=== PATIENT | female | born 1965 | race Caucasian/White ===

== ENCOUNTER 2019-09-05 21:07 | Inpatient (IN) | payer SELFPAY ==
[~2019-09-05] VITALS: Ht 162.6 cm; Wt 58.2 kg
[2019-09-05 23:15] VITALS: BP 139/83
[2019-09-06] VITALS (11 sets, daily range): BP systolic 92–156; BP diastolic 51–85
--- NOTE | 2019-09-06 00:30 | NUR ---
Patient, PIETER SMITH, admitted to room 434, at 2322, with fx rt hip, hutchins and saline lock placed per [place]'s ED nurse, son, obtained list of 3 home meds per daughter (to whom pt lives with), but she did not know doses. booklet given, npo at midnight,
[2019-09-06] MEDS: fentaNYL PF VIAL 100 MCG/2 ML VIAL IVP PRN ×3 (00:41→08:32)
[2019-09-06] MEDS ORDERED: gabapentin (04:15)
[2019-09-06] MEDS ORDERED: synthroid (04:15)
[2019-09-06] MEDS ORDERED: cymbalta (04:15)
[2019-09-06 05:05] LABS: BASO % 1 % (0-3); EOS # 0.1 x10^3/uL (0.0-0.7); EOS % 2 % (0-3); HEMATOCRIT 35.5 % (36.0-47.0); LYMPH # 0.7 x10^3/uL (1.0-4.8); LYMPH % 19 % (24-48); MEAN CORPUSCULAR HEMOGLOBIN 32 pg (25-35); MEAN CORPUSCULAR HGB CONC 34 g/dL (31-37); MEAN CORPUSCULAR VOLUME 94 fL (79-100); MONO # 0.4 x10^3/uL (0.0-1.1); MONO % 10 % (0-9); NEUT # 2.6 x10^3/uL (1.8-7.7); NEUT % 68 % (31-73); PLATELET COUNT 159 x10^3/uL (140-400); RED BLOOD COUNT 3.79 x10^6/uL (3.50-5.40); RED CELL DISTRIBUTION WIDTH 14.2 % (11.5-14.5); WHITE BLOOD COUNT 3.8 x10^3/uL (4.0-11.0)
[2019-09-06 05:17] LABS: PROTHROMBIN TIME PATIENT 12.5 SEC (11.7-14.0)
[2019-09-06 06:07] LABS: ALBUMIN 3.4 g/dL (3.4-5.0); ALBUMIN/GLOBULIN RATIO 1.1 (1.0-1.7); CREATININE 0.9 mg/dL (0.6-1.0); GFR 65.2; TOTAL BILIRUBIN 0.6 mg/dL (0.2-1.0); TOTAL PROTEIN 6.5 g/dL (6.4-8.2)
[2019-09-06 06:31] LABS: POTASSIUM 4.1 mmol/L (3.5-5.1)
[2019-09-06] MEDS ORDERED: IV RINGERS,LACTATED 1000ML 1,000 ML IV SCH (09:26)
[2019-09-06] MEDS ORDERED: LIDOCAINE 1% PF 2 ML VIAL. ID PRN (09:30)
[2019-09-06] MEDS ORDERED: HYDROmorphone 2 MG/ML VIAL IV PRN (09:30)
[2019-09-06] MEDS ORDERED: MORPHINE SULFATE 2 MG/ML VIAL. IV PRN ×2 (09:30→17:45)
[2019-09-06] MEDS ORDERED: PROCHLORPERAZINE 10 MG/2 ML VIAL. IV PRN (09:30)
[2019-09-06] MEDS ORDERED: fentaNYL PF VIAL 100 MCG/2 ML VIAL IV PRN ×3 (09:30→17:45)
[2019-09-06] MEDS ORDERED: ONDANSETRON PF 4 MG/2 ML VIAL. IV PRN ×2 (09:30→17:45)
--- NOTE | 2019-09-06 10:05 | HP ---
ADMIT DATE: HISTORY OF PRESENT ILLNESS: The patient is a 53-year-old female patient who was brought to the Emergency Room of [facility] one hour post-fall after attempting to step over a baby gate and landed on her right side. The patient complained of severe hip and right shoulder pain. She stated that she did not hit her head or lose consciousness. The pain is achy, 5/10 in severity, worsens with movement. She took three 500 mg Tylenol after the fall, but it has not helped with the pain. She denied any neck, back or other joint pain. She is hard of hearing, is able to read lips and able to make her needs known. She was extensively evaluated in the Emergency Room. Her lab works were unremarkable; however, her x-ray of the hip and pelvis showed that the patient has mildly displaced right femoral neck fracture. X-ray of the shoulder was apparently unremarkable and chest x-ray was showed no acute finding and was transferred to [facility] for definitive surgical intervention by the orthopedic surgeon. PAST MEDICAL HISTORY: Significant for multiple myeloma. She has also history of amyloidosis, depression, hyperthyroidism, bilateral breast cancer. PAST SURGICAL HISTORY: Significant for total abdominal hysterectomy, bilateral salpingo-oophorectomy, thyroidectomy and bilateral mastectomy. She underwent also stem cell transplant for multiple myeloma. She has peripheral neuropathy. ALLERGIES: SHE IS ALLERGIC TO IODINE. MEDICATIONS: She is currently on following medications: She is on Cymbalta, Levoxyl and gabapentin. FAMILY HISTORY: She has 4 sisters older and one brother younger, are all healthy. Her father at age of 77 with heart disease and mother at age 77 because of lung cancer. SOCIAL HISTORY: She is , has 2 sons and 1 daughter. She never smoked, quit drinking alcohol about 3 years ago. She continued to use marijuana. She currently lives with her daughter. PHYSICAL EXAMINATION: GENERAL: On examining her; she looked well and was clearly in no apparent respiratory distress, pale but no jaundice, cyanosis or thyromegaly. No jugular venous distension. No lower limb edema. VITAL SIGNS: Her heart rate was 82, blood pressure was 142/80, temperature was 98, respiratory rate was 16 and oxygen saturation was 97%. HEAD, EYES, EARS, NOSE AND THROAT: Showed normocephalic, atraumatic. NECK: Supple. HEART: Showed normal first and second heart sounds. No gallop or murmur. CHEST: Clear to auscultation. No crepitation or rhonchi. ABDOMEN: Distended, soft, nontender. NEUROLOGIC: She is awake, alert, very hard of hearing but she is apparently able to read lips. All other cranial nerves are intact. EXTREMITIES: She moves all extremities without difficulty. She is having pain moving her right lower extremity. LABORATORY DATA: Her lab work showed serum sodium 140, potassium 3.9, chloride 104, bicarbonate 26, anion gap of 10, BUN 25 and creatinine 1. Estimated GFR was 57 mL per minute. Her glucose was 108, calcium was 9.6 and magnesium 2. Total bilirubin, AST and ALT are normal. Alkaline phosphatase slightly elevated. Her total protein was 6.7 and albumin 3.8. Her white cell count was 8,000, hemoglobin 12.5, hematocrit 37, MCV 95 and platelet count of 186,000. Her prothrombin time, INR and aPTT are all normal. Urinalysis showed the urine was yellow, clear with a pH of 5.5, specific gravity of 1.025 and small amount of protein. The urine otherwise was essentially unremarkable. Her chest x-ray showed no acute cardiopulmonary abnormality. The shoulder x-ray showed that there is no displaced fracture with normal bony alignment, no acute osseous/articular abnormality, minimal hypertrophic changes of the acromioclavicular joint, right-sided Port-A-Cath in place. The x-ray of the hip and pelvis showed that complete transverse fracture of the subcapital femoral neck. There is mild bilateral displacement at the fracture site. Pelvic ring is intact. No additional fractures are seen. She has mild degenerative changes in bilateral hip joints. ASSESSMENT AND PLAN: The patient was transferred to [facility]. Continued on IV fluid, IV pain medication and we have consulted the orthopedic surgeon for further evaluation and treatment. AARON OZUNA MD DR: FABIANA/belinda JOB#: [id number] / [id number]
--- NOTE | 2019-09-06 11:49 | NUR ---
SW following for discharge planning. Discussed with RN, pt is from home with daughter. [facility] to meet with pt to determine if pt meets eligibility for medicaid. Pt to have surgery. SW will continue to follow for discharge planning needs.
--- NOTE | 2019-09-06 12:29 | PN ---
DATE: 09/06/2019 SUBJECTIVE: The patient was admitted yesterday as a transfer from [facility] Emergency Room where she was brought an hour after she fell at home trying to go over a baby gate and landed on her right hip and right shoulder. Her x-ray of the pelvis showed that she has subcapital right femoral neck fracture and was transferred for definitive surgical treatment for her right hip fracture. She was kept n.p.o. from midnight and we did consult the orthopedic surgeon. PHYSICAL EXAMINATION: GENERAL: When I saw her this morning, she looked well and was clearly in no apparent respiratory distress, slightly pale, but no jaundice, cyanosis or thyromegaly. No jugular venous distention. No limb edema. VITAL SIGNS: Her heart rate was 73, blood pressure 156/78, temperature was 97.8, respiratory rate was 18 and oxygen saturation was 99%. The rest of clinical exam is stable. LABORATORY DATA: Her lab work showed that her white cell count was 3800, hemoglobin 12, hematocrit 36, MCV 94, and platelet count 259,000. Her chemistry showed that her serum sodium 141, potassium 4.1, chloride 105, bicarbonate 25, anion gap of 11, BUN 19, creatinine 0.9, estimated GFR was 65 mL per minute, her glucose 112, calcium was 9. Total bilirubin is normal; however, AST, ALT, alkaline phosphatase has risen. Her total protein was 6.5, albumin was 3.4. ASSESSMENT: In summary, this is a 53-year-old who fell, landing on her right hip, sustaining right subcapital femoral neck fracture, here for definitive surgical treatment. She has multiple other medical problems including breast cancer status post bilateral mastectomy, has multiple myeloma status post stem cell transplant. She has also hypothyroidism, status post thyroidectomy and peripheral neuropathy. AARON OZUNA MD DR: FABIANA/belinda JOB#: [id number] / [id number]
[2019-09-06] MEDS ORDERED: ONDANSETRON PF 4 MG/2 ML VIAL. ONE (15:30)
[2019-09-06] MEDS ORDERED: LIDOCAINE 2% PF 5 ML VIAL. ONE (15:30)
[2019-09-06] MEDS ORDERED: MIDAZOLAM HCL/PF 2 MG/2 ML VIAL. ONE (15:30)
[2019-09-06] MEDS ORDERED: fentaNYL PF VIAL 100 MCG/2 ML VIAL ONE (15:30)
[2019-09-06] MEDS ORDERED: DEXAMETHASONE SOD PHOS 4 MG/ML VIAL ONE (15:30)
[2019-09-06] MEDS ORDERED: PROPOFOL 20 ML IV ONE (15:30)
[2019-09-06] MEDS ORDERED: MORPHINE SULFATE 5 MG, KETOROLAC 30MG VIAL 30 MG, ROPIVacaine 0.5% PF 60 ML, EPINEPHrin... INT ART ONE ×5 (16:00)
[2019-09-06] MEDS ORDERED: ROCURONIUM 50 MG/5 ML VIAL. ONE (16:03)
[2019-09-06] MEDS ORDERED: ceFAZolin SODIUM 1 GM VIAL ONE (16:47)
[2019-09-06] MEDS ORDERED: GLYCOPYRROLATE 1 MG/5 ML VIAL. ONE (17:03)
[2019-09-06] MEDS ORDERED: NEOSTIGMINE METHYLSULFATE 5 MG/5 ML SYRINGE. ONE (17:04)
[2019-09-06] MEDS ORDERED: NITROGLYCERIN SUBLINGUAL 0.4 MG BOTTLE OF 25. SL ONE (17:17)
[2019-09-06] MEDS ORDERED: SEVOFLURANE 61 TO 120 MINUTES. IH ONE (17:29)
[2019-09-06] MEDS ORDERED: HYDROcodone/APAP 7.5/325MG 1 TAB TABLET PO PRN (17:45)
[2019-09-06] MEDS ORDERED: oxyCODONE IR 5 MG TABLET PO PRN (17:45)
[2019-09-06] MEDS ORDERED: MORPHINE SULFATE 4 MG/ML VIAL. IV PRN (17:45)
[2019-09-06] MEDS ORDERED: DEXTROSE 50% 25 GM / 50ML DISP.SYRIN. IV PRN (17:45)
[2019-09-06] MEDS ORDERED: POLYETHYLENE GLYCOL 3350 17 GM PACKET. PO PRN (17:45)
--- NOTE | 2019-09-06 17:51 | PDOC4 ---
Operative Note Operative Note Date of surgery: 09/06/2019 Preoperative diagnosis: Displaced right femoral neck fracture Postoperative diagnosis: Same Operative procedure: Right hip hemiarthroplasty Surgeon: Hung Anesthesia: Gen. Estimated blood loss: 850 mL Complications: None Specimens: Femoral head to pathology Operative indications: Please see my orthopedic consultation for detailed operative indications Operative text: Patient was identified procedure verified patient placed in the supine position on the operative table. After adequate amounts of general anesthesia were administered she was placed decubitus and the right side up position with the Stulberg hip positioner all bony prominences were well-padded and the right hip was prepped and draped in standard sterile fashion. After timeout was performed patient procedure identified and verified curvilinear incision was made centered over the greater trochanter iliotibial band and gluteal fascia were split in line with their fibers and Charnley retractor was placed. Hip capsule was split in a T fashion external rotators were divided from their insertion and calcar cut was made femoral head was removed and sized at a size 42 acetabular cartilage was noted to be intact femoral canal was reamed and broached and noted to have significant bleeding from within the canal even prior to broaching and a size 11 broach was trial fit with a 22 mm head 42 mm outer diameter bipolar trial component trial components removed thorough irrigation carried out normal saline solution and a size 11 standard offset Sy[employer] stem was impacted in place with proper version and a size 22 mm inner diameter 42 mm outer diameter bipolar construct was assembled on the back table tapped in place to engage the Ordoñez taper and reduced offset and leg length were re-produced with excellent stability thorough irrigation again carried out normal saline solution hip capsule was repaired with #5 Ethibond suture external rotators were repaired transosseously as well pain mixture was injected throughout the joint capsule fascia was closed with #5 Ethibond suture and #1 P DS running suture strata fix subcutaneous closure with buried Vicryl skin closure with christian a david dressing with Acticoat was placed patient was returned to recovery room in stable condition. She was noted to have some mild EKG abnormalities and postoperatively recommended for a monitored bed with cardiology evaluation and her primary care doctor was notified as well JOSE DURANT MD Sep 06, 2019 17:51
--- NOTE | 2019-09-06 18:19 | EKG ---
[facility] [address] [place] [address] Test Date: 2019-09-06 Test Time: 18:13:45 Pat Name: PIETER SMITH Department: Room: 434 1 Gender: F Statistician Applied: SHILOH : 1965 Requested By: VIRAL NICHOLSON Order Number: [id number] Reading MD: Measurements Intervals [place] Rate: 94 P: TN: QRS: -9 QRSD: 126 T: 94 QT: 392 QTc: 496 Interpretive Statements IRREGULAR RHYTHM, NO P-WAVE FOUND LEFTWARD AXIS NON SPECIFIC INTRAVENTRICULAR BLOCK QRS(T) CONTOUR ABNORMALITY CONSISTENT WITH ANTEROSEPTAL INFARCT PROBABLY OLD ABNORMAL ECG RI6.01 No previous ECG available for comparison
[2019-09-06 18:27] LABS: HEMOGLOBIN 10.1 g/dL (12.0-15.5); RED BLOOD COUNT 3.18 x10^6/uL (3.50-5.40); WHITE BLOOD COUNT 9.2 x10^3/uL (4.0-11.0)
[2019-09-06] MEDS ORDERED: WARFARIN 5 MG TABLET. PO ONE (18:30)
[2019-09-06 18:40] LABS: CALCIUM 8.6 mg/dL (8.5-10.1); CREATININE 0.9 mg/dL (0.6-1.0); GFR 65.2; POTASSIUM 3.9 mmol/L (3.5-5.1)
--- NOTE | 2019-09-06 20:36 | CONS ---
DATE OF CONSULTATION: 09/06/2019 REQUESTING PHYSICIAN: Dr. Giles. REASON FOR CONSULTATION: Right hip fracture. HISTORY OF PRESENT ILLNESS: The patient is a 53-year-old female who presented to [facility] Emergency Department after tripping over a baby gate, landing on her right hip, had the severe onset of right hip pain, inability to bear weight. Denies any head injury or loss of consciousness. She did hit her shoulder, but that is not currently tender. She has severe hip pain with any movement or attempts at weightbearing and was transferred to [facility] for further evaluation and treatment due to her hip fracture. PAST MEDICAL HISTORY: Significant for severe hard of hearing, multiple myeloma, breast cancer, depression, hyperthyroidism and amyloidosis. Also, significant for peripheral neuropathy. PAST SURGICAL HISTORY: Hysterectomy, oophorectomy, thyroidectomy, bilateral mastectomy and stem cell transplant for multiple myeloma. ALLERGIES: INCLUDE IODINE. MEDICATIONS: Cymbalta, Levoxyl and gabapentin. FAMILY HISTORY: Has several siblings that are healthy. Father of heart disease in his late 70s and mother of lung cancer. SOCIAL HISTORY: She is , has children. Denies current cigarette smoking and quit drinking any alcohol several years ago. She does occasionally use marijuana and lives with her daughter. REVIEW OF SYSTEMS: Significant for the severe right hip pain and some shoulder achiness after contusion on the fall. Denies any head injury. No chest pain, shortness of breath. She does have baseline peripheral neuropathy. Otherwise, no weakness, numbness, tingling focally. PHYSICAL EXAMINATION: GENERAL: A pleasant, cooperative 53-year-old female, very hard of hearing, but certainly can communicate well with her hearing aid in. HEENT: Atraumatic, normocephalic. MUSCULOSKELETAL: She has good range of motion and stability of bilateral shoulders, elbows and wrists. EXTREMITIES: Examination of the right hip reveals some mild shortening, slight rotation, tender with any motion. Normal examination of the contralateral left hip, bilateral knees and ankles with overall, aside from her baseline stocking distribution, neuropathy; intact motor function, distal pulses, sensation in both upper and lower extremities throughout. IMAGING: X-rays show a displaced femoral neck fracture on the right. TREATMENT PLAN: I went over with her the concern for interruption of her blood supply due to the fracture and the recommended treatment of a right hip hemiarthroplasty, particularly because even with fixation, I think her healing rate would be very low due to the compromise of the blood supply to the femoral head. I talked about the possibility of wear down the line that may result in conversion to a total hip, perhaps with many years in the future. However, doing a total hip at this point does have an increased risk of instability. We also talked about the possibility of infection, nerve or blood vessel damage, continued pain, stiffness, medical or other anesthetic complications among others. She agrees to proceed with surgical evaluation and treatment, which will occur today as she was already evaluated and cleared for surgical intervention by Dr. Giles. JOSE DURANT MD DR: KASANDRA/belinda JOB#: [id number] / [id number]
[2019-09-06] MEDS ORDERED: MAGNESIUM SULFATE 1GM 100 ML IV ONE (23:00)
[2019-09-06] MEDS: ceFAZolin SODIUM IV Push 1 GM VIAL. IVP SCH (23:10)
[2019-09-06] MEDS: HYDROcodone/APAP 7.5/325MG 1 TAB TABLET PO PRN (23:20)
[2019-09-07 03:05] VITALS: BP 102/58
[2019-09-07] MEDS: ceFAZolin SODIUM IV Push 1 GM VIAL. IVP SCH ×2 (05:40→10:31)
[2019-09-07] MEDS: HYDROcodone/APAP 7.5/325MG 1 TAB TABLET PO PRN ×3 (05:47→22:46)
[2019-09-07 05:48] LABS: BASO % 1 % (0-3); EOS % 0 % (0-3); HEMATOCRIT 25.6 % (36.0-47.0); HEMOGLOBIN 8.8 g/dL (12.0-15.5); LYMPH # 0.6 x10^3/uL (1.0-4.8); LYMPH % 9 % (24-48); MEAN CORPUSCULAR HEMOGLOBIN 32 pg (25-35); MEAN CORPUSCULAR HGB CONC 34 g/dL (31-37); MEAN CORPUSCULAR VOLUME 94 fL (79-100); MONO # 0.6 x10^3/uL (0.0-1.1); MONO % 9 % (0-9); NEUT # 5.5 x10^3/uL (1.8-7.7); NEUT % 81 % (31-73); PLATELET COUNT 140 x10^3/uL (140-400); RED BLOOD COUNT 2.74 x10^6/uL (3.50-5.40); RED CELL DISTRIBUTION WIDTH 14.2 % (11.5-14.5); WHITE BLOOD COUNT 6.7 x10^3/uL (4.0-11.0)
[2019-09-07] MEDS ORDERED: MAGNESIUM HYDROXIDE 2,400 MG/30 ML ORAL.SUSP. PO PRN (06:00)
[2019-09-07 06:06] LABS: CALCIUM 8.7 mg/dL (8.5-10.1); GFR 57.8; MAGNESIUM 2.1 mg/dL (1.8-2.4); POTASSIUM 4.5 mmol/L (3.5-5.1)
[2019-09-07 07:25] VITALS: BP 108/56
[2019-09-07] MEDS ORDERED: GABA-585 PO (07:31)
[2019-09-07] MEDS ORDERED: LEVO125T5 PO (07:31)
[2019-09-07] MEDS ORDERED: DULO60CA6 PO (09:23)
--- NOTE | 2019-09-07 09:40 | PN ---
DATE: 09/07/2019 SUBJECTIVE: The patient underwent right hip hemiarthroplasty successfully. Apparently during the operation, she developed arrhythmias and ST segment depression according to the dairy equipment specialist and she also lost about 850 mL of blood and therefore, she was admitted to [facility] for monitoring. Her first troponin was only ____ 0.017. Her magnesium was apparently low at 1.5; however, the potassium was within normal range and we did consult the cardiology for evaluation and treatment. When I saw her this morning, she was sitting slightly propped up in bed, eating her breakfast comfortably, in no apparent distress. She is very hard of hearing. However, she did not offer any complaint. The nursing staff stated that she has an uneventful night. PHYSICAL EXAMINATION: GENERAL: When I examined her, she looked pale, no jaundice, cyanosis or thyromegaly. No jugular venous distension. No lower limb edema. VITAL SIGNS: Her heart rate was 82, blood pressure was 108/56, temperature was 98, respiratory rate was 20, and oxygen saturation was 94%. The rest of examination is stable. LABORATORY DATA: Showed serum sodium 141, potassium 4.5, chloride 106, bicarbonate 26, anion gap of 9, BUN 20, creatinine 1, estimated GFR was 58 mL per minute. Her glucose 116, calcium was 8.7, magnesium was 2.1. ASSESSMENT: 1. The patient was admitted after attempting to step over a baby gate and landed on her right side, sustaining right femoral neck fracture for which she underwent a right hip hemiarthroplasty successfully. 2. Blood loss anemia with hemoglobin and hematocrit dropped down from 12 and 35.5 to 8.8 and 25.6. She has multiple other medical problems including multiple myeloma, status post stem cell transplant. 3. Breast cancer, status post bilateral mastectomy. She has amyloidosis, depression, hyperthyroidism, status post thyroidectomy. PLAN: My plan is to continue with current plan of management. I will check another cardiac enzyme and monitor her H and H closely and await evaluation by the dolphin researcher. AARON OZUNA MD DR: FABIANA/belinda JOB#: [id number] / [id number]
[2019-09-07] MEDS ORDERED: LEVOTHYROXINE 125 MCG TABLET PO SCH (10:00)
--- NOTE | 2019-09-07 10:00 | CARD ---
MR#: [id number] Date of Study: 09/07/2019 Ordering Physician: GUNNER SANDHU, Referring Physician: GUNNER SANDHU, Tech: Juli Connelly RDCS APPROVED REPORT EXAM: Two-dimensional and M-mode echocardiogram with Doppler and color Doppler. Other Information Quality : Technically LimitedHR: 87bpm Rhythm : Other INDICATION Arrhythmia 2D DIMENSIONS RVDd3.5 (2.9-3.5cm)Left Atrium(2D)4.3 (1.6-4.0cm) IVSd1.4 (0.7-1.1cm)Aortic Root(2D)2.8 (2.0-3.7cm) LVDd3.2 (3.9-5.9cm)LVOT Diameter1.9 (1.8-2.4cm) PWd1.4 (0.7-1.1cm)LVDs2.0 (2.5-4.0cm) FS (%) 35.8 %SV27.0 ml LVEF(%)65.0 (>50%) M-Mode DIMENSIONS Left Atrium(MM)4.17 (2.5-4.0cm)Aortic Root2.34 (2.2-3.7cm) Aortic Valve AoV Peak Angus.188.8cm/sAoV VTI27.9cm AO Peak GR.14.3mmHgLVOT VTI 12.44cm AO Mean GR.7mmHgAVA (VTI)1.30cm2 Mitral Valve MV E Pfgzbgff934.1cm/sMV E Peak Gr.87mmHg MV DECEL PENL469iyVT A Dfitxlrz614.1cm/s MV E Mean Gr.3mmHgE/A Ratio1.0 MV A Uqyrjleb18nt Tricuspid Valve TR P. Kdzruhuk915bz/sRAP WYSWBIIY1foVv TR Peak Gr.60nrSyHFHE93euOa LEFT VENTRICLE The left ventricle cavity is small. There is moderate concentric left ventricular hypertrophy. The le ft ventricular systolic function is normal. The Ejection Fraction is 65-70%. There is normal LV segme ntal wall motion. Transmitral Doppler flow pattern is Grade I-abnormal relaxation pattern. RIGHT VENTRICLE The right ventricle is normal size. The right ventricle is mildly hypertrophied. The right ventricula r systolic function is normal. ATRIA The left atrium is mildly dilated. The right atrium size is normal. The interatrial septum is intact with no evidence for an atrial septal defect or patent foramen ovale as noted on 2-D or Doppler imagi ng. AORTIC VALVE The aortic valve is normal in structure and function. The aortic valve is trileaflet. Doppler and Col or Flow revealed no significant aortic regurgitation. There is no significant aortic valvular stenosi s. MITRAL VALVE The mitral valve is thickened but opens well. There is no evidence of mitral valve prolapse. There is no mitral valve stenosis. Doppler and Color-flow revealed mild mitral regurgitation. TRICUSPID VALVE The tricuspid valve is normal in structure and function. Doppler and Color Flow revealed mild tricusp id regurgitation. There is moderate pulmonary hypertension. The PA pressure was estimated at 48 mmHg. There is no tricuspid valve prolapse or vegetation. There is no tricuspid valve stenosis. PULMONIC VALVE The pulmonic valve is not well visualized. GREAT VESSELS The aortic root is normal in size. The ascending aorta is normal in size. The IVC is normal in size a nd collapses >50% with inspiration. PERICARDIAL EFFUSION There is no evidence of significant pericardial effusion. Critical Notification Critical Value: No <Conclusion> The left ventricular systolic function is normal. The Ejection Fraction is 65-70%. There is normal LV segmental wall motion. Mild mitral regurgitation. Mild tricuspid regurgitation. The PA pressure was estimated at 48 mmHg. There is no evidence of significant pericardial effusion. Signed by : John Jordan, Electronically Approved : 09/07/2019 09:59:58
[2019-09-07] MEDS: SENNOSIDES/DOCUSATE 8.6/50MG TABLET. PO SCH (10:31)
--- NOTE | 2019-09-07 10:56 | PDOC2 ---
CARDIAC CONSULT DATE OF CONSULT Date of Consult DATE: 09/07/19 TIME: 10:23 REASON FOR CONSULT Reason for Consult: Intraoperative ST changes REFERRING PHYSICIAN Referring Physician: Hannah HISTORY OF PRESENT ILLNESS HISTORY OF PRESENT ILLNESS This is a 53 yo female admitted for complains of right hip pain with fall. Initially she was at [facility] and further imaging showed right femoral fracture ending up with right hip hemiarthroplasty. She does not have hx of AFIB but apparently per staff she lost about >800 ml of blood and intraop was noted with ST depression. I was not able to retrieve her EKG readings at that time but her EKG showed that she was in AFIB which is new for her. She did convert to SR. Prior to her fall she has not had any cardiac symptoms and actually tolerated the fracture repair. 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 Also she had stem cell transplant due to malignant melanoma. She had a stress test 2 yrs ago prior to her thyroidectomy. 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/26/2018; neurogenic OH) Heme/Onc: Cancer (breast) Psych: Depression Musculoskeletal: Osteoarthritis, Other (ataxia?) ENT: Other (YAVAPAI-APACHE) Endocrine: Hypothyroidism Dermatology: Melanoma PAST SURGICAL HISTORY Past Surgical History: Tubal Ligation, Hysterectomy, Other (s/p stem cell transplant; thyroidectomy; breast reconstruction) FAMILY HISTORY Family History: Hypertension SOCIAL HISTORY Smoke: No ALCOHOL: none Drugs: None Lives: with Family CURRENT MEDICATIONS CURRENT MEDICATIONS Current Medications Medications (Trade) Dose Ordered Sig/Elizabeth Route PRN Reason Start Time Stop Time Status Last Admin Dose Admin Morphine Sulfate 5 mg/Ketorolac Tromethamine 30 mg/Ropivacaine 60 ml/Epinephrine HCl 0.5 mg/Sodium Chloride 100 ml @ 100 mls/hr 1X ONCE INT ART 09/06/19 16:00 09/06/19 16:59 DC 09/06/19 17:15 Cefazolin Sodium/ Dextrose 50 ml @ 100 mls/hr 1X ONCE IV 09/06/19 17:30 09/06/19 17:59 DC 09/06/19 16:05 Warfarin Sodium (Coumadin) 5 mg 1X ONCE PO 09/06/19 18:30 09/06/19 18:31 DC 09/06/19 23:10 Acetaminophen/ Hydrocodone Bitart (Lortab 7.5/325) 1 tab PRN Q4HRS PRN PO PAIN 09/06/19 17:45 09/07/19 05:47 Cefazolin Sodium (Ancef) 1 gm Q6H IVP 09/06/19 22:00 09/07/19 10:01 DC 09/07/19 05:40 Magnesium Sulfate/ Dextrose 100 ml @ 100 mls/hr 1X ONCE IV 09/06/19 23:00 09/06/19 23:59 DC 09/06/19 23:11 ALLERGIES ALLERGIES: Coded Allergies: Iodine and Iodide Containing Produc (Verified Allergy, Intermediate, Rash, 09/06/19) ROS Review of System 14 point ROS evaluated with pertinent positives noted per HPI PHYSICAL EXAM General: Alert, Oriented X3, Cooperative, No acute distress HEENT: Atraumatic, Mucous membr. moist/pink, Other (YAVAPAI-APACHE with hearing aids) Lungs: Clear to auscultation, Normal air movement Heart: Regular rate (SR), Normal S1, Normal S2, Other (3/6 systolic murmur to LLs border) Abdomen: Soft, No tenderness Extremities: No cyanosis, No edema Skin: No breakdown Neuro: Normal speech, Sensation intact Psych/Mental Status: Mental status NL, Mood NL MUSCULOSKELETAL: Osteoarthritic changes both hands VITALS/I&O VITALS/I&O: Vital Signs Date Time Temp Pulse Resp B/P (MAP) Pulse Ox O2 Delivery O2 Flow Rate FiO2 09/07/19 08:00 Room Air 09/07/19 07:25 98.0 82 20 108/56 (73) 94 98.0 09/07/19 03:05 2.0 I & O 09/06/19 09/06/19 09/07/19 15:00 23:00 07:00 Intake Total 2210 ml 400 ml Output Total 1200 ml 1250 ml 250 ml Balance -1200 ml 960 ml 150 ml LABS Lab: Laboratory Tests Test 09/06/19 18:20 09/07/19 04:58 White Blood Count 9.2 x10^3/uL (4.0-11.0) 6.7 x10^3/uL (4.0-11.0) Red Blood Count 3.18 x10^6/uL (3.50-5.40) L 2.74 x10^6/uL (3.50-5.40) L Hemoglobin 10.1 g/dL (12.0-15.5) L 8.8 g/dL (12.0-15.5) L Hematocrit 30.0 % (36.0-47.0) L 25.6 % (36.0-47.0) L Mean Corpuscular Volume 94 fL (79-100) 94 fL (79-100) Mean Corpuscular Hemoglobin 32 pg (25-35) 32 pg (25-35) Mean Corpuscular Hemoglobin Concent 34 g/dL (31-37) 34 g/dL (31-37) Red Cell Distribution Width 14.0 % (11.5-14.5) 14.2 % (11.5-14.5) Platelet Count 152 x10^3/uL (140-400) 140 x10^3/uL (140-400) Sodium Level 142 mmol/L (136-145) 141 mmol/L (136-145) Potassium Level 3.9 mmol/L (3.5-5.1) 4.5 mmol/L (3.5-5.1) Chloride Level 105 mmol/L (98-107) 106 mmol/L (98-107) Carbon Dioxide Level 25 mmol/L (21-32) 26 mmol/L (21-32) Anion Gap 12 (6-14) 9 (6-14) Blood Urea Nitrogen 14 mg/dL (7-20) 20 mg/dL (7-20) Creatinine 0.9 mg/dL (0.6-1.0) 1.0 mg/dL (0.6-1.0) Estimated GFR (Cockcroft-Gault) 65.2 57.8 Glucose Level 159 mg/dL (70-99) H 116 mg/dL (70-99) H Calcium Level 8.6 mg/dL (8.5-10.1) 8.7 mg/dL (8.5-10.1) Magnesium Level 1.5 mg/dL (1.8-2.4) L 2.1 mg/dL (1.8-2.4) Troponin I Quantitative < 0.017 ng/mL (0.000-0.055) < 0.017 ng/mL (0.000-0.055) Neutrophils (%) (Auto) 81 % (31-73) H Lymphocytes (%) (Auto) 9 % (24-48) L Monocytes (%) (Auto) 9 % (0-9) Eosinophils (%) (Auto) 0 % (0-3) Basophils (%) (Auto) 1 % (0-3) Neutrophils # (Auto) 5.5 x10^3/uL (1.8-7.7) Lymphocytes # (Auto) 0.6 x10^3/uL (1.0-4.8) L Monocytes # (Auto) 0.6 x10^3/uL (0.0-1.1) Eosinophils # (Auto) 0.0 x10^3/uL (0.0-0.7) Basophils # (Auto) 0.0 x10^3/uL (0.0-0.2) Thyroid Stimulating Hormone (TSH) 0.020 uIU/mL (0.358-3.74) L Laboratory Tests 09/06/19 18:20 09/07/19 04:58 Laboratory Tests 09/06/19 18:20 09/07/19 04:58 ASSESSMENT/PLAN ASSESSMENT/PLAN 1. Traumatic mechanical fall: S/P right hip hemiarthroplasty POD#1. no cardiac symptoms in relation to fall 2. AFIB RVR: now SR. EKG changes induced by surgical stress response with significant blood loss. EF is nml. Stable 3. Hx of cardiac amyloidosis 4. Hypothyroidism: TSH is supratherapeutic and on replacement. Defer to PCP 5. Postoperative anemia 6. Hx of cardiac amyloidosis 7. Hx of malignant melanoma: S/P stem cell transplant Recommendations 1. No AV nikolas blocking agents, BP is marginal. Consider MCOT as an outpt, discussed with pt, will defer to Dr. Ky JAMES 2. On warfarin VTE prophylaxis per ortho. Will at least need ASA once off warfarin till AFIB burden is noted. 3. Will repeat EKG as pt is now in SR. 4. Monitor rhythm, supportive care. GUNNER SANDHU APRN Sep 07, 2019 10:56
[2019-09-07 11:06] VITALS: BP 101/58
--- NOTE | 2019-09-07 11:17 | EKG ---
[facility] [address] [place] [address] Test Date: 2019-09-07 Test Time: 11:12:36 Pat Name: PIETER SMITH Department: Room: 246 1 Gender: F Insulation Professional: MARISEL : 1965 Requested By: GUNNER SANDHU Order Number: [id number] Reading MD: Measurements Intervals Jay Rate: 90 P: -56 DE: 170 QRS: -27 QRSD: 124 T: 95 QT: 394 QTc: 486 Interpretive Statements SINUS RHYTHM COMPLEX(ES) WITH ABERRANT INTRAVENTRICULAR CONDUCTION ATRIAL PREMATURE COMPLEX(ES) LEFTWARD AXIS LEFT BUNDLE BRANCH BLOCK ABNORMAL ECG RI6.02 No previous ECG available for comparison
[2019-09-07] MEDS: GABAPENTIN 100 MG CAPSULE. PO SCH ×2 (12:36→19:51)
--- NOTE | 2019-09-07 12:47 | NUR ---
Pharmacy Warfarin Dosing Note S: Pharmacy consulted to assist with anticoagulation therapy started 09/06/19 O: PIETER SMITH is a 53 year old F with THELMA LABS: Last INR: 1.0 Last HGB: 8.8 Last HCT: 25.6 Last PLT: 140 Last dose of 5 mg given on 09/06/19 at 2310 Vitamin K given: N Ongoing Drug Interactions: CYMBALTA A:INR of 1.0 is below desired range. Target range for this patient is: 1.6 - 2.5 P: Warfarin dose: 5 mg Today at 1600 Bridge Therapy: None Next INR due 09/08/19 AM Pharmacy anticoagulation service will continue to follow. JESSE RDZ [facility], 09/07/19 0740
--- NOTE | 2019-09-07 13:10 | NUR ---
SS following for discharge planning. Pt transferred from surgery floor. SS discussed with Ramona EMMANUEL. Pt is self pay pt. HCFS following for self pay status. Pt is from home with daughter and is currently on room air. SS will continue to follow for discharge planning.
[2019-09-07 15:28] VITALS: BP 121/71
[2019-09-07 15:50] LABS: HEMATOCRIT 26.6 % (36.0-47.0)
[2019-09-07] MEDS ORDERED: BISACODYL 10 MG SUPP.RECT. PR PRN (16:00)
[2019-09-07] MEDS ORDERED: WARFARIN 5 MG TABLET. PO ONE (16:00)
--- NOTE | 2019-09-07 16:08 | NUR ---
Patient ambulated on unit with therapy. Patient currently sitting in reclining chair. Patient reporting right hip pain 05/10. Ice pack applied. PRN pain medication given per patient request. Will continue to monitor.
[2019-09-07 18:59] VITALS: BP 116/67
[2019-09-07 22:23] VITALS: BP 93/59
[2019-09-08 02:09] VITALS: BP 95/67
[2019-09-08 06:47] VITALS: BP 109/64
[2019-09-08 07:39] LABS: HEMATOCRIT 26.6 % (36.0-47.0); HEMOGLOBIN 9.1 g/dL (12.0-15.5); RED BLOOD COUNT 2.82 x10^6/uL (3.50-5.40); RED CELL DISTRIBUTION WIDTH 14.3 % (11.5-14.5); WHITE BLOOD COUNT 4.9 x10^3/uL (4.0-11.0)
[2019-09-08] MEDS ORDERED: LEVOTHYROXINE 125 MCG TABLET PO SCH (07:45)
[2019-09-08 07:56] LABS: ALBUMIN 3.4 g/dL (3.4-5.0); CREATININE 1.3 mg/dL (0.6-1.0); GFR 42.7; POTASSIUM 4.8 mmol/L (3.5-5.1); TOTAL BILIRUBIN 0.6 mg/dL (0.2-1.0); TOTAL PROTEIN 6.7 g/dL (6.4-8.2)
[2019-09-08] MEDS: GABAPENTIN 100 MG CAPSULE. PO SCH ×3 (08:16→20:42)
[2019-09-08] MEDS: SENNOSIDES/DOCUSATE 8.6/50MG TABLET. PO SCH (08:16)
[2019-09-08] MEDS: HYDROcodone/APAP 7.5/325MG 1 TAB TABLET PO PRN ×3 (08:17→20:42)
[2019-09-08] MEDS: LEVOTHYROXINE 75 MCG TABLET PO SCH (08:25)
[2019-09-08 09:30] LABS: PROTHROMBIN TIME PATIENT 18.7 SEC (11.7-14.0)
[2019-09-08 10:08] VITALS: BP 102/57
[2019-09-08] MEDS ORDERED: IV NORMAL SALINE 1000ML BAG 1,000 ML IV ONE (11:30)
--- NOTE | 2019-09-08 11:31 | PDOC ---
CARDIO Progress Notes Date and Time Date of Service 09/08/2019 Time of Evaluation 0940 Subjective Subjective: No Chest Pain, No shortness of breath, No Palpitations, Other (surgical pain controlled) Vitals Vitals Vital Signs Date Time Temp Pulse Resp B/P (MAP) Pulse Ox O2 Delivery O2 Flow Rate FiO2 09/08/19 10:08 98.1 93 18 102/57 (72) 96 Room Air 98.1 Weight Weight [ ] Input and Output Intake and Output Intake and Output 09/08/19 07:00 Intake Total 580 ml Output Total 1600 ml Balance -1020 ml Intake Oral 580 ml Output Urine Total 1600 ml Laboratory Labs Laboratory Tests Test 09/07/19 15:45 09/08/19 07:20 Hemoglobin 9.0 g/dL (12.0-15.5) 9.1 g/dL (12.0-15.5) Hematocrit 26.6 % (36.0-47.0) 26.6 % (36.0-47.0) White Blood Count 4.9 x10^3/uL (4.0-11.0) Red Blood Count 2.82 x10^6/uL (3.50-5.40) Mean Corpuscular Volume 94 fL (79-100) Mean Corpuscular Hemoglobin 32 pg (25-35) Mean Corpuscular Hemoglobin Concent 34 g/dL (31-37) Red Cell Distribution Width 14.3 % (11.5-14.5) Platelet Count 143 x10^3/uL (140-400) Prothrombin Time 18.7 SEC (11.7-14.0) Prothromb Time International Ratio 1.6 (0.8-1.1) Sodium Level 138 mmol/L (136-145) Potassium Level 4.8 mmol/L (3.5-5.1) Chloride Level 103 mmol/L (98-107) Carbon Dioxide Level 26 mmol/L (21-32) Anion Gap 9 (6-14) Blood Urea Nitrogen 25 mg/dL (7-20) Creatinine 1.3 mg/dL (0.6-1.0) Estimated GFR (Cockcroft-Gault) 42.7 BUN/Creatinine Ratio 19 (6-20) Glucose Level 99 mg/dL (70-99) Calcium Level 9.0 mg/dL (8.5-10.1) Total Bilirubin 0.6 mg/dL (0.2-1.0) Aspartate Amino Transf (AST/SGOT) 28 U/L (15-37) Alanine Aminotransferase (ALT/SGPT) 27 U/L (14-59) Alkaline Phosphatase 102 U/L (46-116) Total Protein 6.7 g/dL (6.4-8.2) Albumin 3.4 g/dL (3.4-5.0) Albumin/Globulin Ratio 1.0 (1.0-1.7) Physical Exam HEENT: Neck Supple W Full Motion Chest: Symmetric LUNGS: Clear to Auscultation Heart: S1S2, RRR (Sr no ectopies) Abdomen: Soft N/T Extremities: No Calf Tenderness Neurology: alert, oriented, follow commands Assessment Assessment 1. Traumatic mechanical fall: S/P right hip hemiarthroplasty POD#1. no cardiac symptoms in relation to fall 2. AFIB RVR: now SR. EKG changes induced by surgical stress response with significant blood loss. EF is nml. Stable 3. Hx of cardiac amyloidosis 4. Hypothyroidism: TSH is supratherapeutic and on replacement. Defer to PCP 5. Postoperative anemia 6. Hx of cardiac amyloidosis 7. Hx of malignant melanoma: S/P stem cell transplant 8. OLIVIA: likely volume depletion, defer to PCP Recommendations 1. No need for AV nikolas blocking agents at this time given her marginal BP. Further treatment pending MCOT as an outpt, discussed with pt, will defer to Dr. Ky JAMES 2. On warfarin VTE prophylaxis per ortho. Will at least need ASA once off warfarin till AFIB burden is noted. 3. NS1L x1 4. Nothing further cardiac cote, pls call if any questions. GUNNER SANDHU MONOGRAM TECHNICIAN Sep 08, 2019 11:31
--- NOTE | 2019-09-08 14:01 | NUR ---
Pharmacy Warfarin Dosing Note S:Pharmacy consulted to assist with anticoagulation therapy started 09/06/19 with target INR: 1.6 - 2.5 O:PIETER SMITH is a 53 year old F with THELMA LABS: Last INR: 1.6 Last HGB: 9.1 Last HCT: 26.6 Last PLT: 143 Last dose of 5 mg given on 09/07/19 at 1603 Previous Regimen: Vitamin K given: N Drug Interaction Changes: Same Interacting Drug Ongoing Drug Interactions: CYMBALTA A:INR of 1.6 is within desired range. Target range for this patient is: 1.6 - 2.5 P: Warfarin dose: 3 mg Today at 1600 Bridge Therapy: None Next INR due TOMORROW. Pharmacy anticoagulation service will continue to follow. RACHEL GUTIERREZ [facility], 09/08/19 [id number]
[2019-09-08 14:47] VITALS: BP 113/67
[2019-09-08] MEDS ORDERED: WARFARIN 3 MG TABLET. PO ONE (16:00)
[2019-09-08 19:09] VITALS: BP 109/61
[2019-09-08] MEDS: DULoxetine HCL 30 MG CAPSULE.DR PO SCH (20:42)
[2019-09-08 22:00] VITALS: BP 118/63
--- NOTE | 2019-09-08 23:25 | PN ---
DATE: 09/08/2019 SUBJECTIVE: The patient is sitting comfortably in her recliner, in no apparent distress. On questioning her, denied any chest pain or shortness of breath. Denied any palpitation, dizziness, lightheadedness. Does complain of pain in her left hip, though she was up and about, walked with a walker. Her lab work showed that her TSH is almost undetectable. Her hemoglobin and hematocrit, her lab work is still pending at the time of this dictation. PHYSICAL EXAMINATION: GENERAL: When I examined her, she looked pale, but no jaundice, cyanosis or thyromegaly. No jugular venous distention. No limb edema. VITAL SIGNS: Her heart rate was 95, blood pressure was 109/64, temperature was 98, respiratory rate was 18 and oxygen saturation was 95% on room air. HEAD, EYES, EARS, NOSE AND THROAT: Showed normocephalic, atraumatic. NECK: Supple. HEART: Showed normal first and second heart sounds. No gallop, rub or murmur. CHEST: Clear to auscultation. No crepitation or rhonchi. ABDOMEN: Distended, soft, nontender. No guarding or rigidity. No organomegaly. All hernial orifice intact. Bowel sounds normal. NEUROLOGIC: She was hard of hearing, but otherwise all her cranial nerves are intact. She moves extremities without difficulty. She ambulates with a walker. LABORATORY DATA: Her lab work today is still pending at the time of this dictation. However, as of yesterday, her hemoglobin was 9, hematocrit 26.6. She has 2 sets of cardiac enzymes showed troponin to be less than 0.017. Her TSH is almost undetectable at 0.020, but her free T4 is normal. ASSESSMENT: 1. Mechanical fall with resultant right femoral neck fracture, status post right hip hemiarthroplasty. 2. The patient developed acute blood loss anemia with ST-segment depression noted intraoperatively and her EKG showed that she was in atrial fibrillation. As of now, she is back in sinus rhythm. She has multiple medical problems including hypothyroidism secondary to thyroidectomy. Other medical problems include multiple myeloma, status post stem cell transplant x 2. She has breast cancer, status post bilateral mastectomy. 3. Cardiac amyloidosis. PLAN: My plan is obviously to arrange for her to be transferred to a correction facility. She lives in [facility] will be suitable place for her to be there. I will consult the case management manager to see if she qualifies or her insurance authorized her admission to their correction facility. AARON OZUNA MD DR: FABIANA/belinda JOB#: [id number] / [id number]
[2019-09-09 03:59] VITALS: BP 126/80
[2019-09-09 07:00] VITALS: BP 114/64
[2019-09-09] MEDS: LEVOTHYROXINE 75 MCG TABLET PO SCH (07:33)
[2019-09-09 07:50] LABS: PROTHROMBIN TIME PATIENT 18.9 SEC (11.7-14.0)
[2019-09-09 08:41] LABS: HEMATOCRIT 23.9 % (36.0-47.0); HEMOGLOBIN 8.1 g/dL (12.0-15.5); RED BLOOD COUNT 2.52 x10^6/uL (3.50-5.40); RED CELL DISTRIBUTION WIDTH 13.9 % (11.5-14.5); WHITE BLOOD COUNT 4.6 x10^3/uL (4.0-11.0)
[2019-09-09] MEDS: SENNOSIDES/DOCUSATE 8.6/50MG TABLET. PO SCH (08:46)
[2019-09-09] MEDS: GABAPENTIN 100 MG CAPSULE. PO SCH ×3 (08:46→21:33)
[2019-09-09 08:58] LABS: CALCIUM 8.4 mg/dL (8.5-10.1); CREATININE 0.8 mg/dL (0.6-1.0); GFR 74.7; POTASSIUM 4.8 mmol/L (3.5-5.1)
--- NOTE | 2019-09-09 09:26 | NUR ---
Pharmacy Warfarin Dosing Note S:Pharmacy consulted to assist with anticoagulation therapy started 09/06/19 with target INR: 1.6 - 2.5 O:PIETER SMITH is a 53 year old F with THELMA LABS: Last INR: 1.6 Last HGB: 8.1 Last HCT: 23.9 Last PLT: 129 Last dose of 3 mg given on 09/08/19 at 1622 Previous Regimen: Vitamin K given: N Drug Interaction Changes: Same Interacting Drug Ongoing Drug Interactions: CYMBALTA A:INR of 1.6 is within desired range. Target range for this patient is: 1.6 - 2.5 P: Warfarin dose: 3 mg Today at 1600 Bridge Therapy: None Next INR due 09/10/19 Pharmacy anticoagulation service will continue to follow. NICKY HODGE [facility], 09/09/19 0968
--- NOTE | 2019-09-09 09:43 | PN ---
DATE: 09/09/2019 SUBJECTIVE: The patient is resting, slightly propped up in her recliner, no apparent distress. On questioning her, denied any complaint. The patient is able to walk with a walker. She is full weightbearing. She is on Coumadin. Her INR is still subtherapeutic. Unfortunately, she will not be able to go to a halfway facility to continue the process of rehabilitation. PHYSICAL EXAMINATION: GENERAL: When I examined her, she was pale, somewhat cachectic, but no jaundice, cyanosis or thyromegaly. No jugular venous distention. No lower limb edema. VITAL SIGNS: Her heart rate was 102, blood pressure was 126/80, temperature was 98.8, respiratory rate was 16, and oxygen saturation was 94% on room air. HEAD, EYES, EARS, NOSE AND THROAT: Showed normocephalic, atraumatic. NECK: Supple. CARDIAC: Normal first and second heart sounds with no gallop, rub or murmur. CHEST: Clear to auscultation. No crepitation or rhonchi. ABDOMEN: Slightly distended, soft, nontender. NEUROLOGIC: She is very hard of hearing, otherwise all cranial nerves intact. She moves extremities without difficulty. Her intake was 580, output was 1600. LABORATORY DATA: As of yesterday, her hemoglobin was 9.1, hematocrit was 27. Normal white cell count and platelets. Her chemistry stable and her prothrombin time was 18.9, INR 1.6, which is subtherapeutic. PLAN: My plan is to check her CBC and BMP again today stat and if they are stable and the Cardiology team and orthopedic surgeon are okay to discharge, we can discharge her home. AARON OZUNA MD DR: FABIANA/belinda JOB#: [id number] / [id number]
[2019-09-09 11:32] VITALS: BP_SYST 104; BP_SYST 148; BP_DIAS 62; BP_DIAS 79
--- NOTE | 2019-09-09 12:00 | NUR ---
Assumed pt care at this time. Report received from MODE Sosa. Pt in chair watching tv. Denies any needs. Call light within reach. Will return to monitor.
[2019-09-09 15:32] VITALS: BP 110/57
[2019-09-09] MEDS ORDERED: WARFARIN 3 MG TABLET. PO ONE (16:00)
[2019-09-09 19:00] VITALS: BP 101/60
[2019-09-09] MEDS: HYDROcodone/APAP 7.5/325MG 1 TAB TABLET PO PRN (21:33)
[2019-09-09] MEDS: DULoxetine HCL 30 MG CAPSULE.DR PO SCH (21:33)
[2019-09-09 23:00] VITALS: BP 111/71
[2019-09-10 03:00] VITALS: BP 126/70
[2019-09-10 07:35] VITALS: BP 122/72
[2019-09-10] MEDS: SENNOSIDES/DOCUSATE 8.6/50MG TABLET. PO SCH (08:08)
[2019-09-10] MEDS: GABAPENTIN 100 MG CAPSULE. PO SCH ×3 (08:08→21:27)
[2019-09-10] MEDS: LEVOTHYROXINE 75 MCG TABLET PO SCH (08:08)
--- NOTE | 2019-09-10 08:48 | PDOC ---
PROGRESS NOTES Subjective Subjective Problems overnight: Right hip feels much better, she says it's a little bit sore but getting around well Objective Vital Signs Vital Signs Date Time Temp Pulse Resp B/P (MAP) Pulse Ox O2 Delivery O2 Flow Rate FiO2 09/10/19 07:35 98.5 103 16 122/72 (89) 95 Room Air 98.5 09/09/19 08:00 2.0 Physical Exam Kaci dressing maintain suction and has evidence of some bloody drainage that since dried centrally around the dressing some mild wound bruising posteriorly Labs Laboratory Tests Test 09/09/19 07:15 White Blood Count 4.6 x10^3/uL (4.0-11.0) Red Blood Count 2.52 x10^6/uL (3.50-5.40) Hemoglobin 8.1 g/dL (12.0-15.5) Hematocrit 23.9 % (36.0-47.0) Mean Corpuscular Volume 95 fL (79-100) Mean Corpuscular Hemoglobin 32 pg (25-35) Mean Corpuscular Hemoglobin Concent 34 g/dL (31-37) Red Cell Distribution Width 13.9 % (11.5-14.5) Platelet Count 129 x10^3/uL (140-400) Prothrombin Time 18.9 SEC (11.7-14.0) Prothromb Time International Ratio 1.6 (0.8-1.1) Sodium Level 139 mmol/L (136-145) Potassium Level 4.8 mmol/L (3.5-5.1) Chloride Level 103 mmol/L (98-107) Carbon Dioxide Level 26 mmol/L (21-32) Anion Gap 10 (6-14) Blood Urea Nitrogen 22 mg/dL (7-20) Creatinine 0.8 mg/dL (0.6-1.0) Estimated GFR (Cockcroft-Gault) 74.7 Glucose Level 104 mg/dL (70-99) Calcium Level 8.4 mg/dL (8.5-10.1) Assessment Assessment POD# right hip hemiarthroplasty for fracture Plan Plan of Care Continue weightbearing as tolerated standard total hip precautions DVT prophyl axis Medical supportive care Placement when medically stable and follow-up Dr. Persaud approximately 2 weeks postoperative JOSE PERSAUD MD Sep 10, 2019 08:48
--- NOTE | 2019-09-10 10:46 | PN ---
DATE: 09/10/2019 SUBJECTIVE: The patient is resting, slightly propped up in bed, in no apparent respiratory distress, awake, alert. On questioning her, denied any complaint. She was seen by Dr. Persaud, who apparently recommended that she should be weightbearing as tolerated. Continue with DVT prophylaxis. Unfortunately, she has no insurance and difficult to place her in a penitentiary facility or rehab center. Her PT/INR is still subtherapeutic, and given that she does not have a primary care physician, my plan is to keep her one more night and tomorrow see if we can get her on Eliquis and also see if the [facility] can take care of her at home. PHYSICAL EXAMINATION: GENERAL: When I examined her today, she looked well and was clearly in no apparent respiratory distress, pale, somewhat cachectic, but no jaundice, cyanosis, or thyromegaly. No jugular venous distension. No limb edema. VITAL SIGNS: Her heart rate was 103, blood pressure was 122/72, temperature was 98.5, respiratory rate was 16, and oxygen saturation was 95% on room air. HEAD, EYES, EARS, NOSE, AND THROAT: Normocephalic, atraumatic. NECK: Supple. HEART: Showed normal first and second heart sounds. No gallop, rub, or murmur. CHEST: Clear to auscultation. No crepitation or rhonchi. ABDOMEN: Distended, soft, and nontender. NEUROLOGIC: She is hard of hearing. Otherwise, her cranial nerves intact. She ambulates with a walker. LABORATORY DATA: Her lab work this morning showed a white cell count 4600, hemoglobin 8.1, hematocrit 23.9, MCV 95, and platelet count of 129,000. Her chemistry showed a serum sodium of 139, potassium 4.8, chloride 103, bicarbonate 26, anion gap of 10, BUN 22, creatinine 0.8, estimated GFR was 74 mL per minute, her glucose 104, calcium was 8.4. PLAN: Plan is to continue with pain management. Continue with Coumadin and adjust the dose to maintain INR between 2-2.5. Continue with physical and occupational therapy. My plan is hopefully to discharge her home tomorrow to see if we can qualify for assistance for her Eliquis and also see if one of the home health agencies can take care of her at home. AARON OZUNA MD DR: Sofia JOB#: [id number] / [id number]
[2019-09-10 11:14] LABS: PROTHROMBIN TIME PATIENT 21.7 SEC (11.7-14.0)
--- NOTE | 2019-09-10 11:41 | NUR ---
Pharmacy Warfarin Dosing Note S:Pharmacy consulted to assist with anticoagulation therapy started 09/06/19 with target INR: 1.6 - 2.5 O:PIETER SMITH is a 53 year old F with THELMA LABS: Last INR: 1.9 Last HGB: 8.1 Last HCT: 23.9 Last PLT: 129 Last dose of 3 mg given on 09/09/19 at 1505 Previous Regimen: Vitamin K given: N Drug Interaction Changes: Same Interacting Drug Ongoing Drug Interactions: CYMBALTA A:INR of 1.9 is within desired range. Target range for this patient is: 1.6 - 2.5 P: Warfarin dose: 3 mg Today at 1600 Bridge Therapy: None Next INR due 09/11/19 Pharmacy anticoagulation service will continue to follow. NICKY HODGE [facility], 09/10/19 [id number]
[2019-09-10 11:43] VITALS: BP 129/67
[2019-09-10 15:47] VITALS: BP 116/66
[2019-09-10] MEDS ORDERED: WARFARIN 3 MG TABLET. PO ONE (16:00)
[2019-09-10 19:00] VITALS: BP 106/63
[2019-09-10] MEDS: DULoxetine HCL 30 MG CAPSULE.DR PO SCH (21:27)
[2019-09-10] MEDS: HYDROcodone/APAP 7.5/325MG 1 TAB TABLET PO PRN (21:28)
[2019-09-10 23:00] VITALS: BP 103/72
[2019-09-11 03:00] VITALS: BP 111/66
[2019-09-11 07:29] VITALS: BP 111/70
[2019-09-11 07:40] LABS: HEMATOCRIT 23.4 % (36.0-47.0); HEMOGLOBIN 8.1 g/dL (12.0-15.5)
[2019-09-11 07:50] LABS: PROTHROMBIN TIME PATIENT 18.9 SEC (11.7-14.0)
[2019-09-11] MEDS: GABAPENTIN 100 MG CAPSULE. PO SCH ×2 (08:21→14:19)
[2019-09-11] MEDS: SENNOSIDES/DOCUSATE 8.6/50MG TABLET. PO SCH (08:21)
[2019-09-11] MEDS: LEVOTHYROXINE 75 MCG TABLET PO SCH (08:21)
[2019-09-11] MEDS ORDERED: HYDR-2763 PO (09:18)
[2019-09-11] MEDS ORDERED: APIX5TAB PO (09:18)
--- NOTE | 2019-09-11 10:28 | NUR ---
SS following up with discharge planning. Discharge order on the chart for home with home health and walker. SS provided pt with walker for home. SS contacted [facility], ; fax [phone], and received notification that they will provide [facility] PT services to pt at home. SS phoned and faxed referral to [facility]. Pt's RN notified.
--- NOTE | 2019-09-11 10:33 | SNU/HH DC ---
DISCHARGE WITH HOME HEALTH DISCHARGE INFORMATION: Discharge Date: Sep 11, 2019 Final Diagnosis: right hip fracture s/p right hip hemiarthroplasty multiple myeloma' breast cancer hypothyroidism Condition on Discharge: Stable CODE STATUS: Code Status: Full HOME HEALTH: Face to Face: I certify this patient is under my care and that I, or a nurse practitioner or physician's medical technician assistant working with me, had a face to face encounter that meets the physician face to face encounter requirements with this patient on 09/11/19 Medical Complications: S/P Joint Replacement Snf For: Assess & Educate Safety RN For Eval/Treatment: Yes Physical Therapy For: Evalulation/Treatment Occupational Therapy For: Evaluation/Treatment Pt Meets Homebound Status: Unsteady balance w/ amb, POST DISCHARGE ORDERS: Activity Instructions for Disc: Resume previous activity DIET AFTER DISCHARGE: Regular CERTIFICATION STATEMENT: Certification Statement: Certification Statement: Based on the above finding, I certify that this patient is confined to the home and needs intermittent detention care, physical therapy and/or speech therapy, or continues to need occupational therapy.~ This patient is under my care, and I have initiated the establishment of the plan of care.~ This patient will be followed by myself or a community physician who will periodically review the plan of care. Home Meds Active Scripts Apixaban (ELIQUIS) 5 Mg Tablet, 5 MG PO BID for dvt for 30 Days, #60 TAB Prov:AARON OZUNA MD 09/11/19 Hydrocodone/Acetaminophen (Hydrocodone-Acetamin 7.5-325) 1 Each Tablet, 1 EACH PO Q6H for pain for 15 Days, #60 TAB Prov:AARON OZUNA MD 09/11/19 Reported Medications Duloxetine Hcl (CYMBALTA) 60 Mg Capsule.dr, 60 MG PO HS for , CAP 09/07/19 Gabapentin (GABAPENTIN ) 100 Mg Capsule, 100 MG PO TID for NEUROGENIC PAIN, CAP 09/07/19 Levothyroxine Sodium (LEVOTHYROXINE SODIUM) 125 Mcg Tablet, 125 MCG PO DAILYAC for THYROID SUPPLEMENT, #30 TAB 0 Refills 09/07/19 AARON OZUNA MD Sep 11, 2019 10:33
--- NOTE | 2019-09-11 10:38 | NUR ---
Discharge orders phoned and faxed to [facility], ; fax [phone].
[2019-09-11 11:00] VITALS: BP 97/63
[2019-09-11] MEDS ORDERED: HEPARIN PF 500 UNIT/5 ML DISP.SYRIN. IVP ONE (14:15)
--- NOTE | 2019-09-11 15:06 | PATHOLOGY ---
[facility] Accession Number: [id number] . 01 Material submitted: . femur - RIGHT FEMORAL HEAD. Modifiers: right, head . 01 Clinical history: . Right hip fracture . 02 Diagnosis: Femoral head, right hip hemiarthroplasty: - Focal fragmentation of bony trabeculae with recent intertrabecular hemorrhage consistent with fracture. - Degenerative arthritis. . (JPM:mm; 09/11/2019) [facility] 09/11/2019 0935 Local . 02 Comment: There is no evidence of malignancy. . (JPM:mm; 09/11/2019) . 02 Electronically signed: . Baljeet Darby MD, Pathologist NPI- [id number] . 01 Gross description: . Received in formalin labeled "Green, Melissa, right femoral head," is a femoral head measuring 4.2 x 4.2 x 4.3 cm in greatest dimensions. The articular surface is smooth to granular and pale devien to dark brown in appearance, displaying no gross evidence of eburnation. The bone margin is jagged and hemorrhagic in appearance, grossly consistent with a fracture site. Serial sectioning reveals pale yellow-devine to pink-devine and partially hemorrhagic cut surfaces, with extensive dark brown hemorrhage noted at the bone margin. No cysts or nodules are noted grossly. Claim Review Medical Director sections of the bone margin and articular surface are submitted in cassette A1, following decalcification. ([facility]; 09/08/2019) XDC/XDC 09/08/2019 0716 Local . 02 Pathologist provided ICD-10: S72.091A, M16.11 . 02 CPT . 804851, 529218 Specimen Comment: A courtesy copy of this report has been sent to [phone] Specimen Comment: [id number] Specimen Comment: Report sent to / DR OZUNA Performed at: [address] [facility] [address], [place] [id number] MD Rubin Kilgore MD Phone: [phone] Performed at: 02 [facility] [place] [address] [place], [place] [id number] MD Baljeet Darby MD Phone: [phone]
[2019-09-11 16:00] VITALS: BP 109/67
[2019-09-11] MEDS ORDERED: LEVO75TA PO (16:16)
[2019-09-11] MEDS ORDERED: WARFARIN 3 MG TABLET. PO ONE (16:17)
--- NOTE | 2019-09-11 16:20 | NUR ---
Pharmacy Warfarin Dosing Note S:Pharmacy consulted to assist with anticoagulation therapy started 09/06/19 with target INR: 1.6 - 2.5 O:PIETER SMITH is a 53 year old F with [facility]: Last INR: 1.6 Last HGB: 8.1 Last HCT: 23.4 Last PLT: 129 Last dose of 3 mg given on 09/10/19 at 1505 Previous Regimen: Vitamin K given: N Drug Interaction Changes: Same Interacting Drug Ongoing Drug Interactions: CYMBALTA A:INR of 1.6 is within desired range. Target range for this patient is: 1.6 - 2.5 P: Warfarin dose: 3 mg Now Bridge Therapy: None Next INR due TOMORROW. Pharmacy anticoagulation service will continue to follow. RACHEL GUTIERREZ [facility], 09/11/19 4400
== END 2019-09-11 18:20 | disposition home health service (06) | DRG 470 ==
LOC: 4 NORTH 23:19 → 2 SOUTH 09-06 19:00
PROVIDERS: ADMIT Internal Medicine; ATTEND Internal Medicine
PROC: 0SRR0JZ Replacement of Right Hip Joint, Femoral Surface with Synthetic Substitute, Open Approach (ICD-10-PCS; principal; 2019-09-06 16:00)
DX: S72.011A Unspecified intracapsular fracture of right femur, initial encounter for closed fracture (principal); D62 Acute posthemorrhagic anemia; N17.9 Acute kidney failure, unspecified; Z94.84 Stem cells transplant status; E85.4 Organ-limited amyloidosis; I43 Cardiomyopathy in diseases classified elsewhere; E89.0 Postprocedural hypothyroidism; F32.9 Major depressive disorder, single episode, unspecified; F12.90 Cannabis use, unspecified, uncomplicated; I48.91 Unspecified atrial fibrillation; I10 Essential (primary) hypertension; G62.9 Polyneuropathy, unspecified; M19.90 Unspecified osteoarthritis, unspecified site; I27.20 Pulmonary hypertension, unspecified; W01.0XXA Fall on same level from slipping, tripping and stumbling without subsequent striking against object, initial encounter; Y93.89 Activity, other specified; Y92.89 Other specified places as the place of occurrence of the external cause; Y99.8 Other external cause status; Z79.01 Long term (current) use of anticoagulants; Z85.3 Personal history of malignant neoplasm of breast; Z85.820 Personal history of malignant melanoma of skin; Z90.13 Acquired absence of bilateral breasts and nipples; Z90.710 Acquired absence of both cervix and uterus; Z90.722 Acquired absence of ovaries, bilateral; Z88.8 Allergy status to other drugs, medicaments and biological substances; Z80.1 Family history of malignant neoplasm of trachea, bronchus and lung; Z82.49 Family history of ischemic heart disease and other diseases of the circulatory system
CPT/HCPCS: 36415; 80048; 80053; 83735; 84439; 84443; 84484; 85014; 85018; 85025; 85027; 85610; 85730; 88305; 88311; 93005; 93306; A7015; C1713; J0690; J0696; J1100; J2001; J2250; J2405; J2704; J2710; J3010; J3475; J3490; J7030; J7120; 97110; 97116; 97530; 97535; G0378